=== PATIENT | female | born 1980 | race Caucasian/White ===

== ENCOUNTER → 2022-03-30 10:56 | Outpatient (CLI) | payer BC, SELFPAY ==
--- NOTE | ~2022-03-30 | XR_ITS ---
Right Hand Technique: PA, oblique, and lateral views were obtained. Clinical History: Pain Findings: No acute fracture or dislocation is seen. Osseous alignment is anatomic. Joint spaces are p reserved. Soft tissues are unremarkable. Impression: Unremarkable right hand. Reviewed, dictated and finalized at location M. ET LIGHT SERVICER SUPERVISOR Impression: Unremarkable right hand.
== END ==
PROVIDERS: PCP Family Medicine; Visit Provider Physician Assistant Medical
DX: M79.644 Pain in right finger(s) (principal)
CPT/HCPCS: 73130

== ENCOUNTER 2022-04-18 14:30 | Outpatient (RCR) | payer BC, SELFPAY ==
--- NOTE | 2022-02-23 12:19 | OTOPEVAL1 ---
Assessment and note entered by Denise Sylvester OTR/Tri Evaluation Information Assessment Status Evaluation Diagnosis Right Thumb Pain Subjective Information Patient presents to Outpatient OT for complaint of R pain over 1st dorsal compartment/base of thumb which began in October 2021. 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 Reported Pain Level Pain Score 0: Self Report Assessment OT Clinical Summary Velma is a 41 year old R hand dominant female, who presents to outpatient OT with complaints of pain /tenderness over R UE 1st dorsal compartment and base of thumb. Patient reports difficulties with work tasks such as gripping, pinching, grasping due to pain in thumb. Patient demonstrates a positive Finkelstien test and positive CMC joint grind test on R UE. Therapist fabricated a thumb spica orthosis for patient to facilitate healing of tendons at 1st dorsal compartment. Patient demonstrates understanding of wearing schedule, safety with orthosis, and is independent with doffing/donning orthosis. Patient would benefit from continued skilled OT for HEP instruction, UE exercise, manual therapy modalities to optimize functional use of R UE. Plan of Care Interventions Therapeutic Exercise,Manual Therapy,Therapeutic Activities,Hot Pack/Cold Pack,Check Out for Orthotic/Pr,Ultrasound,Paraffin OT Services Indicated Yes Treatment Frequency and 1x/week for 4 weeks Duration These treatments will address the objective and functional deficits as defined above. The patient will be advanced safely and appropriately in order for the patient to progress towards his/her prior level of function. Additional exercises will be introduced and as well as a comprehensive home exercise program upon discharge, if needed, ?to ensure carryover of functional gains achieved in the clinic. This treatment plan has been reviewed and agreement upon by the patient.
--- NOTE | 2022-03-22 15:08 | OTOPPROG ---
Assessment and note entered by Denise Sylvester OTR/Tri Evaluation Information Assessment Status Progress Diagnosis Right Thumb Pain Subjective Information Patient presents to Outpatient OT for complaint of R pain over 1st dorsal compartment/base of thumb which began in October 2021. Patient reports since coming to therapy and immobilizing thumb the pain in thumb and the amount of instances that increases pain in thumb has decreased. Patient reports is still experiencing pain in thumb at this time. Assessment OT Clinical Summary Velma is a 41 year old R hand dominant female, who presents to outpatient OT for re-evaluation with complaints of pain/tenderness over R UE 1st dorsal compartment and base of thumb. Patient reports less pain with work tasks including gripping, tearing tasks but occasionally these tasks will still cause increased discomfort. Patient demonstrates a positive Jean test which reports is less painful today and positive CMC joint grind test on R UE. Patient would benefit from continued skilled OT for continued immobilization with orthosis, HEP instruction, UE exercise, manual therapy, and modalities to optimize functional use of R UE. Plan of Care Interventions Therapeutic Exercise,Manual Therapy,Therapeutic Activities,Hot Pack/Cold Pack,Check Out for Orthotic/Pr,Ultrasound,Paraffin OT Services Indicated Yes Treatment Frequency and 1x/week for 4 weeks Duration These treatments will address the objective and functional deficits as defined above. The patient will be advanced safely and appropriately in order for the patient to progress towards his/her prior level of function. Additional exercises will be introduced and as well as a comprehensive home exercise program upon discharge, if needed, ?to ensure carryover of functional gains achieved in the clinic. This treatment plan has been reviewed and agreement upon by the patient.
--- NOTE | 2022-04-18 15:02 | OTOPDC ---
Assessment and note entered by Denise Sylvester OTR/Tri Evaluation Information Assessment Status Discharge Diagnosis Right Thumb Pain Subjective Information Patient presents to Outpatient OT for complaint of R pain over 1st dorsal compartment/base of thumb which began in October 2021. Patient reports since last treatment thumb has significantly improved and does not have pain with gripping, tearing tape , twisting tape. Patient reports has continued implementing HEP daily. Patient reports feels she is able to complete daily/work tasks with no pain and without the use of thumb spica splint. Reported Pain Level Pain Score 0: Self Report Assessment OT Clinical Summary Velma is a 41 year old R hand dominant female, who presents to outpatient OT for re-evaluation with complaints of pain/tenderness over R UE 1st dorsal compartment and base of thumb. Patient reports no longer experiencing pain with work tasks including gripping, tearing tasks. Patient demonstrates a negative Finkelstien test. Patient is pleased with progress and is to be discharged from skilled OT on this date with goals met and independence with HEP. Plan of Care OT Services Indicated No
== END 2022-04-18 15:37 | disposition home or self-care (01) ==
LOC: ANHGOSHOT 14:30
PROVIDERS: PCP Family Medicine; Visit Provider Family Medicine
DX: R29.898 Other symptoms and signs involving the musculoskeletal system (principal)
CPT/HCPCS: 97018; 97035; 97110; 97140; 97165; 97760; L3905

== ENCOUNTER → 2022-06-14 14:38 | Outpatient (CLI) | payer BC, SELFPAY ==
--- NOTE | ~2022-06-14 | MM_ITS ---
EXAMINATION: MM screening margarita BI w osito HISTORY: Screening TECHNIQUE: Craniocaudal and mediolateral oblique 3-D tomosynthesis images were obtained and synthetic 2-D images were generated. CAD analysis was submitted and interpreted. COMPARISON: No prior mammogram is available for comparison at this institution. BREAST PARENCHYMAL COMPOSITION: There are scattered areas of fibroglandular density. FINDINGS: There is no evidence of suspicious mass, calcification, or architectural distortion to sugg est malignancy in either breast. There has been no suspicious interval change. IMPRESSION: 1. No mammographic evidence of malignancy. 2. Recommend routine screening mammography in one year. BI-RADS Category 1: Negative Reviewed, dictated and finalized at location A.
== END ==
PROVIDERS: PCP Family Medicine; Visit Provider Family Medicine
DX: Z12.31 Encounter for screening mammogram for malignant neoplasm of breast (principal)
CPT/HCPCS: 77063; 77067

== ENCOUNTER 2023-01-29 08:22 | Emergency (ER) | payer OTHER, BC, SELFPAY ==
[2023-01-29] VITALS (17 sets, daily range): BP systolic 113–146; BP diastolic 80–94; PULSE 72–102; RESP 12–21; TEMP 36.6; O2SAT 97–100
--- NOTE | ~2023-01-29 | XR_ITS ---
EXAMINATION: XR chest 2V DATE: 01/29/2023 09:49 INDICATION: Chest pain TECHNIQUE: PA and lateral views of the chest are obtained. COMPARISON: None available FINDINGS: The lungs are free of acute opacities. No pleural effusion or pneumothorax. The cardiomedia stinal silhouette is normal. The visualized bones and soft tissues are unremarkable. IMPRESSION: 1. No acute cardiopulmonary abnormality. Reviewed, dictated and finalized at location B. TIVE RETOUCHER
--- NOTE | 2023-01-29 09:18 | ECG_ITS ---
Measurements Intervals [place] Rate: 72 P: 11 NC: 152 QRS: 55 QRSD: 85 T: 1 QT: 373 QTc: 409 Interpretive Statements SINUS RHYTHM BORDERLINE T WAVE ABNORMALITY- ANT/INF LEADS BORDERLINE ECG NO PREVIOUS ECG AVAILABLE FOR COMPARISON Electronically Signed On 01-29-2023 10:28:44 MANAGER LICENSING by Alvino Stevens D.O.
[2023-01-29 10:31] LABS: Basophils Absolute Auto 0.1 K/mm3 (0.0-0.1); Basophils Percent Auto 0.6 % (0.2-1.2); Eosinophils Percent Auto 0.3 % (0-4.4); Hematocrit 40.9 % (37.0-47.0); Hemoglobin 13.7 g/dL (12.0-15.0); Immature Granulocyte Absolute 0.01 K/mm3 (0.00-0.031); Immature Granulocyte Percent A 0.1 % (0-0.5); Lymphocytes Absolute Auto 1.97 K/mm3 (0.9-3.2); Lymphocytes Percent Auto 21.2 % (18.3-44.2); Mean Corpuscular HGB Conc 33.5 g/dl (32-36); Mean Corpuscular Hemoglobin 30.6 pg (26-34); Mean Corpuscular Volume 91.3 fl (80-100); Mean Platelet Volume 10.8 fl (7.4-10.4); Monocytes Absolute Auto 0.4 K/mm3 (0.1-0.6); Monocytes Percent Auto 4.1 % (2.6-8.5); Neutrophils Absolute Auto 6.8 K/mm3 (1.3-6.7); Neutrophils Percent Auto 73.7 % (45.5-73.1); Platelet Count Result 218 k/mm3 (150-375); Red Blood Count 4.48 M/mm3 (4.2-5.4); Red Cell Distribution Width 12.9 % (11.5-14.5); White Blood Count 9.3 K/mm3 (4.5-10.0)
[2023-01-29 10:43] LABS: Potassium 3.4 mmol/L (3.4-5.0)
[2023-01-29 10:47] LABS: Alanine Aminotransferase 20 U/L (6-35); Albumin Level 4.2 g/dL (3.5-5.1); Alkaline Phosphatase 101 U/L (38-126); Anion Gap 8 mmol/L (8-16); Aspartate Amino Transferase 25 U/L (14-36); Bilirubin,Total 0.6 mg/dL (0.2-1.3); Blood Urea Nitrogen 18 mg/dL (7-17); Carbon Dioxide 23 mmol/L (22-30); Chloride 100 mmol/L (98-107); Estimated CRCL calculation 78 ml/min; Estimated Glomerular Filt Rate > 60; Glucose 91 mg/dL (65-110); Sodium 131 mmol/L (137-145)
[2023-01-29 10:49] LABS: INR 0.9; Prothrombin Time 12.9 Seconds (11.1-14.7)
[2023-01-29 10:50] LABS: Partial Thromboplastin Time 27.4 SECONDS (22.3-36.8)
[2023-01-29 10:53] LABS: Troponin I < 0.012 ng/mL (0.000-0.034)
[2023-01-29 11:16] LABS: Creatine Kinase 92 U/L (30-135)
[2023-01-29 12:52] LABS: Troponin I < 0.012 ng/mL (0.000-0.034)
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
== END 2023-01-29 13:38 | disposition home or self-care (01) ==
PROVIDERS: Emergency Provider Emergency Medicine; PCP Family Medicine
DX: T75.4XXA Electrocution, initial encounter (principal); R07.89 Other chest pain; E78.2 Mixed hyperlipidemia; W86.8XXA Exposure to other electric current, initial encounter
CPT/HCPCS: 36415; 71046; 80053; 82550; 84484; 85025; 85610; 85730; 93005; 99284

== ENCOUNTER 2024-03-21 07:21 | Outpatient (CLI) | payer BC, SELFPAY ==
--- NOTE | ~2024-03-21 | CT_ITS ---
EXAMINATION: CT abdomen pelvis w con DATE: 03/21/2024 07:53 INDICATION: Intra-abdominal and pelvic swelling. TECHNIQUE: Computed tomography (CT) of the abdomen and pelvis was performed with 100 mL Omnipaque-350 intravenous contrast. Automated exposure control and iterative reconstruction technique were employe d. The dose-length product was 979.91 mGy-cm. COMPARISON: 08/23/2017 FINDINGS: Mild atelectasis at the right lung base. Heart size is normal. No pericardial or pleural effusion. Th ere are numerous scattered hepatic and bilateral renal cysts with secondary enlargement of the liver and kidneys consistent with autosomal dominant polycystic kidney disease. A large exophytic cyst norman uring up to 10.9 cm in maximal diameter arising from the lower pole of the left kidney demonstrates a n irregular region of peripheral imaging is subtle increased density, the largest component measuring 3.7 x 3.2 x 2.0 cm which could represent either small amount of hemorrhage, proteinaceous debris or potentially enhancing soft tissue. Some of the hepatic cysts exert mass effect upon the otherwise nor mal gallbladder. Spleen, pancreas and bilateral adrenal glands are normal. Postoperative change along the anterior abdominal wall with repair of the previously seen small fat-containing right sided para umbilical ventral hernia. Interval development of a new left paraumbilical ventral hernia which measu res 8.1 x 5.6 x 4.0 cm extending through a 2.9 x 2.2 cm os. Bladder is normal. Fibroid uterus. 1.7 cm peripherally enhancing corpus luteum cyst at the right ovary. Bowels including the appendix are norm al. Small amount of likely physiologic free fluid in the cul-de-sac. Bones are unremarkable. IMPRESSION: 1. Numerous hepatic and bilateral renal cysts consistent with dominant polycystic disease. There is a complex appearance to the 10.8 cm exophytic cyst at the lower pole the left kidney with peripheral r egion of subtly increased density within the absence of precontrast imaging remains indeterminate for enhancing soft tissue in the setting of a renal cell carcinoma. Would recommend further evaluation w ith pre and postcontrast MRI or CT. 2. Fibroid uterus. 3. New moderate-sized fat-containing left paraumbilical ventral hernia. Reviewed, dictated and finalized at location B. OLOGICAL TECHNOLOGIST IMPRESSION: 1. Numerous hepatic and bilateral renal cysts consistent with dominant polycyst ic disease. There is a complex appearance to the 10.8 cm exophytic cyst at the lower pole the left kidney with peripheral region of subtly increased density w ithin the absence of precontrast imaging remains indeterminate for enhancing so ft tissue in the setting of a renal cell carcinoma. Would recommend further shanique luation with pre and postcontrast MRI or CT. 2. Fibroid uterus. 3. New moderate-sized fat-containing left paraumbilical ventral hernia.
[2024-03-21 07:45] LABS: Estimated Glomerular Filt Rate > 60
== END 2024-03-21 07:22 | disposition home or self-care (01) ==
PROVIDERS: PCP Family Medicine; Visit Provider Physician Assistant Medical
DX: R19.00 Intra-abdominal and pelvic swelling, mass and lump, unspecified site (principal); Z87.19 Personal history of other diseases of the digestive system; Z98.890 Other specified postprocedural states; K43.9 Ventral hernia without obstruction or gangrene; D25.9 Leiomyoma of uterus, unspecified
CPT/HCPCS: 74177; Q9967

== ENCOUNTER 2024-05-02 08:02 | Outpatient (CLI) | payer BC, SELFPAY ==
--- NOTE | ~2024-05-02 | CT_ITS ---
EXAMINATION: CT abdomen pelvis wo/w con DATE: 05/02/2024 08:26 INDICATION: Cyst of kidney TECHNIQUE: Computed tomography (CT) of the abdomen and pelvis was performed without and with 100 mL O mnipaque-350 intravenous contrast. Automated exposure control and iterative reconstruction technique were employed. The dose-length product was 1970.59 mGy-cm. COMPARISON: 03/21/2024 FINDINGS: Discoid atelectasis in the right lower lobe. Heart size is normal. No pericardial or pleural effusion . Spleen, pancreas and bilateral adrenal glands are normal. There is numerous cysts throughout the liver and the enlarged bilateral kidneys consistent with polyc ystic kidney disease. The hepatic cysts along the tyson hepatis exert some mass effect upon the other garg normal gallbladder. The right kidney measures 23 cm in length and the left kidney measures 31 cm in length. The largest cyst which measures 10.9 cm arising from the lower pole of the left kidney de monstrates a peripheral region of soft tissue density on the precontrast imaging without evident sully tional enhancement on the postcontrast imaging consistent with a complex proteinaceous versus hemorrh agic cyst. No enhancing renal lesions identified. Bladder is normal. Bowels including the appendix are normal with no obstruction. There are few very s mall cystic lesions at the periphery of the endometrial complex of the retroverted uterus which could represent small fibroids or change of adenomyosis. Minimal amount of likely physiologic free fluid i n the cul-de-sac. Small bilateral ovarian follicles the largest on the right measuring 1.8 cm in maxi mal diameter. Moderate-sized fat-containing left para umbilical ventral hernia. Bones are unremarkabl e. IMPRESSION: 1. Numerous hepatic and bilateral renal cysts consistent with autosomal dominant polycystic kidney di sease. The previously noted high attenuation region at the periphery of the lower pole of the left ki dney demonstrates identical attenuation on the pre and postcontrast imaging with no evident enhanceme nt to suggest neoplasm. 2. Small uterine fibroids versus adenomyosis. 3. Moderate-sized fat-containing left para umbilical ventral hernia. Reviewed, dictated and finalized at location B. LER AND TEST PREPARER IMPRESSION: 1. Numerous hepatic and bilateral renal cysts consistent with autosomal dominan t polycystic kidney disease. The previously noted high attenuation region at th e periphery of the lower pole of the left kidney demonstrates identical attenua tion on the pre and postcontrast imaging with no evident enhancement to suggest neoplasm. 2. Small uterine fibroids versus adenomyosis. 3. Moderate-sized fat-containing left para umbilical ventral hernia.
--- OUTSIDE RECORDS SUMMARY | 2024-05-02 08:09 | XMS_ITS | Referral Summary ---
Author Organization [facility] [employer] Address [address] [place] [address] Care Team Providers Care Boulevard Glassware Replacer Name Role Phone Eliel Smalls MD Primary Care Provider [phone] Source Comments [facility] [employer],non-owned Affiliates and Associated Physician Practices is amultiple site organization consisting of ambulatory clinics and hospital sitesin [place], [place], [place] and [place]. This disclosure is being madepursuant to the Care Everywhere program and may not contain all information available regarding this patient. Last updated 17.[facility] [employer] Allergies No known active allergies Medications * Be aware that medications may not be up to date on this document. Alwaysverify current medications with the patient. Medication Sig Dispensed Refills Start Date End Date Status rosuvastatin (CRESTOR) 40 MG tablet Take 40 mg by mouth once daily Active lisinopril (PRINIVIL; ZESTRIL) 40 MG tablet Take 40 mg by mouth once daily Active HYDROCHLOROTHIAZIDE PO Ac tive sertraline (ZOLOFT) 50 MG tablet Take 50 mg by mouth once daily Active OtherIndications: CONTROl Reasons: CONTROl Active Social History Tobacco Use Types Packs/Day Years Used Date Smoking Tobacco: Never Smokeless Tobacco: Never Sex and Gender Information Value Date Recorded Sex Assigned at Not on file Gender Identity Not on file Sexual Orientation Not on file Last Filed Vital Signs Vital Sign Reading Time Taken Comments Blood Pressure 128/86 02/19/2018 5:35 PM MOBILE PARAMEDICAL EXAMINER Pulse 86 02/19/2018 5:35 PM MOBILE PARAMEDICAL EXAMINER Temperature 37.1 C (98.7 F) 02/19/2018 5:35 PM MOBILE PARAMEDICAL EXAMINER Respiratory Rate 16 02/19/2018 5:35 PM MOBILE PARAMEDICAL EXAMINER Oxygen Saturation 98% 02/19/2018 5:35 PM MOBILE PARAMEDICAL EXAMINER Inhaled Oxygen Concentration - - Weight 76.2 kg (168 lb) 02/19/2018 5:35 PM MOBILE PARAMEDICAL EXAMINER Height 157.5 cm (5' 2 ) 02/19/2018 5:35 PM MOBILE PARAMEDICAL EXAMINER Body Mass Index 30.73 02/19/2018 5:35 PM MOBILE PARAMEDICAL EXAMINER Plan of Treatment Not on file Care Teams Boulevard Glassware Replacer Relationship Specialty Start Date End Date Eliel Smalls MD [address] [place] [address] PCP - General Family Medicine 02/19/18
--- OUTSIDE RECORDS SUMMARY | 2024-05-02 08:09 | XMS_ITS | Patient Health Summary ---
Author Organization [facility] [employer] Address [address] [place] [address] Care Team Providers Care Director Of Retail Operations Name Role Phone Eliel Smalls MD Primary Care Provider [phone] Note from [facility],non-owned Affiliates and Associated Physician Practices is amultiple site organization consisting of ambulatory clinics and hospital sitesin [place], [place], [place] and [place]. This disclosure is being madepursuant to the Care Everywhere program and may not contain all information available regarding this patient. Last updated 17.[facility] [employer] Allergies No known active allergies Medications * Be aware that medications may not be up to date on this document. Alwaysverify current medications with the patient. * rosuvastatin (CRESTOR) 40 MG tablet Take 40 mg by mouth once daily * lisinopril (PRINIVIL; ZESTRIL) 40 MG tablet Take 40 mg by mouth once daily * HYDROCHLOROTHIAZIDE PO * sertraline (ZOLOFT) 50 MG tablet Take 50 mg by mouth once daily * Other Reasons: CONTROl Social History Tobacco Use Types Packs/Day Years Used Date Smoking Tobacco: Never Smokeless Tobacco: Never Sex and Gender Information Value Date Recorded Sex Assigned at Not on file Gender Identity Not on file Sexual Orientation Not on file Last Filed Vital Signs Vital Sign Reading Time Taken Comments Blood Pressure 128/86 02/19/2018 5:35 PM LATHE MACHINE OPERATOR Pulse 86 02/19/2018 5:35 PM LATHE MACHINE OPERATOR Temperature 37.1 C (98.7 F) 02/19/2018 5:35 PM LATHE MACHINE OPERATOR Respiratory Rate 16 02/19/2018 5:35 PM LATHE MACHINE OPERATOR Oxygen Saturation 98% 02/19/2018 5:35 PM LATHE MACHINE OPERATOR Inhaled Oxygen Concentration - - Weight 76.2 kg (168 lb) 02/19/2018 5:35 PM LATHE MACHINE OPERATOR Height 157.5 cm (5' 2 ) 02/19/2018 5:35 PM LATHE MACHINE OPERATOR Body Mass Index 30.73 02/19/2018 5:35 PM LATHE MACHINE OPERATOR Procedures * STREP A SCREEN - POINT OF CARE (AMB) STL(Performed 02/19/2018) Performed for Strep throat * DERMATOPATHOLOGY(Performed 06/29/2014) Results * (ABNORMAL) STREP A SCREEN - POINT OF CARE (AMB) STL (02/19/2018 5:47 PM LATHE MACHINE OPERATOR) Strep A Rapid POCT Positive(A) Negative Strep A Internal Control Present Lot # [id number] Expiration Date 07 18 2019 Throat ENTIRE THROAT (SURFACE REGION OF NECK) / Unknown 02/19/2018 5:47 PM LATHE MACHINE OPERATOR Darryl Mckeon APRN-[facility] - POINT OF CA RE ORDERABLES * PATHOLOGY TISSUE FOR DERMATOLOGY (06/29/2014 12:00 AM CDT) Result CASE: [id number] PATIENT: BARB JENNINGS PATHOLOGIC DIAGNOSIS: Right trunk: COMPOUND MELANOCYTIC NEVUS NOT PRESENT AT SAMPLED MARGIN CLINICAL DATA: Changing, enlarging. Check margins. GROSS DESCRIPTION: Received is one formalin filled container labeled with the patients name and designated right trunk. The specimen consists of a [id number] piece of skin. The margin is inked green. Jar 0. MICROSCOPIC DESCRIPTION: There are nests of melanocytes at the dermal-epiderm al junction and within the dermis. This lesion is not present at the sampled margin of the specimen. Electronically signed out by Irene Vidales M.D., PhD. 07/01/2014 10:56:29AM [facility] Comment: Performed at: Dermatopathology Laboratory [facility] - Department of Dermatology [address] [place] [address], 5th [place] [address] Phone number: [phone] FAX: [phone] 06/29/2014 06/30/2014 Eliel Smalls MD LAB - PATHOLOGY/CYTO LOGY ORDERABLES [facility] [address] [place] [address]. 5th Floor Lab B [address] [phone] Care Teams Director Of Retail Operations Relationship Specialty Start Date End Date Eliel Smalls MD [address] [place] [address] PCP - General Family Medicine 02/19/18
--- OUTSIDE RECORDS SUMMARY | 2024-05-02 08:09 | XMS_ITS | Clinical Summary ---
Author Organization [facility] Address [address] [place] [phone] Phone Care Team Providers Care Supervisor Sign Shop Name Role Phone Unavailable Primary Care Provider Unavailabl e Medications Medication Sig Dispensed Refills Start Date End Date Status lisinopril (PRINIVIL,ZESTRIL) 40 MG tablet 1 tab/cap qday 01/31/2015 Active hydroCHLOROthiazide (HYDRODIURIL) 12.5 MG tablet 1 tab/cap qday 01/31/2015 Active levonorgestrel-ethinyl estradiol (LUTERA) 0.1-20 MG-MCG per tablet 1 tab/cap qday 01/31/2015 Act angela atorvastatin (LIPITOR) 40 MG tablet 1 tab/cap qday 01/31/2015 Active Active Problems Problem Noted Date Diagnosed Date Adult polycystic kidney 02/01/2015 Essential (primary) hypertension 01/31/2015 Other hyperlipidemia 01/31/2015 Overview (06/08/2018): Converted unresolved ICD9, potential mismatch. Family History Medical History Relation Comments Malignant neoplastic disease Father Heart disease Mother Kidney disease Mother Kidney stone Mother Malignant neoplastic disease Sibling Relation Status Comments Father Mother Sibling Social History Tobacco Use Types Packs/Day Years Used Date Smoking Tobacco: Never Assessed Sex and Gender Information Value Date Recorded Sex Assigned at Not on file Gender Identity Not on file Sexual Orientation Not on file Last Filed Vital Signs Vital Sign Reading Time Taken Comments Blood Pressure 122/70 07/17/2016 12:01 AM CDT Sitting, Right Pulse - - Temperature 35.6 C (96.1 F) 07/17/2016 12:01 AM CDT Respiratory Rate - - Oxygen Saturation - - Inhaled Oxygen Concentration - - Weight 79.4 kg (175 lb) 07/17/2016 12:0 1 AM CDT Height 157.5 cm (5' 2 ) 07/17/2016 12:0 1 AM CDT Body Mass Index 32.01 07/17/2016 12:01 AM CDT Plan of Treatment Not on file
--- OUTSIDE RECORDS SUMMARY | 2024-05-02 08:10 | XMS_ITS | Clinical Summary ---
Author Organization [facility] [employer] Address [address] [place] [address] Care Team Providers Care Metal Drill Operator Name Role Phone Eliel Smalls MD Primary Care Provider [phone] Source Comments [facility] [employer],non-owned Affiliates and Associated Physician Practices is amultiple site organization consisting of ambulatory clinics and hospital sitesin [place], [place], [place] and [place]. This disclosure is being madepursuant to the Care Everywhere program and may not contain all information available regarding this patient. Last updated 17.[facility] [employer] Allergies No known active allergies Medications * [...] daily Active OtherIndications: CONTROl Reasons: CONTROl Active Family History Medical History Relation Name Comments Hypertension Mother Relation Name Status Comments Mother Social History Tobacco Use Types Packs/Day Years Used Date Smoking Tobacco: Never Smokeless Tobacco: Never Sex and Gender Information Value Date Recorded Sex Assigned at Not on file Gender Identity Not on file Sexual Orientation Not on file Last Filed Vital Signs Vital Sign Reading Time Taken Comments Blood Pressure 128/86 02/19/2018 5:35 PM MAJOR GENERAL Pulse 86 02/19/2018 5:35 PM MAJOR GENERAL Temperature 37.1 C (98.7 F) 02/19/2018 5:35 PM MAJOR GENERAL Respiratory Rate 16 02/19/2018 5:35 PM MAJOR GENERAL Oxygen Saturation 98% 02/19/2018 5:35 PM MAJOR GENERAL Inhaled Oxygen Concentration - - Weight 76.2 kg (168 lb) 02/19/2018 5:35 PM MAJOR GENERAL Height 157.5 cm (5' 2 ) 02/19/2018 5:35 PM MAJOR GENERAL Body Mass Index 30.73 02/19/2018 5:35 PM MAJOR GENERAL Plan of Treatment Health Maintenance Due Date Last Done Comments MAMMOGRAM 1980 PAP SMEAR 1980 HIV SCREENING 06/28/1995 HEPATITIS C SCREENING 06/23/1998 DTAP/TDAP/TD VACCINES (1 - Tdap) 06/28/1999 HEPATITIS B VACCINE (1 of 3 - 19+ 3-dose series) 06/28/1999 COVID-19 VACCINE ( - 2023-2 5 season) 2023 INFLUENZA VACCINE (#1) 2023 DEPRESSION SCREENING 03/26/2024 ZOSTER VACCINE (1 of 2) 2030 HIB VACCINE Aged Out No longer eligi ble based on patient's age to complete this topic HPV VACCINE Aged Out No longer eligi ble based on patient's age to complete this topic MENINGOCOCCAL (Group B) VACCINE Aged Out No longer eligible based on patient's age to complete this topic MENINGOCOCCAL VACCINE Aged Out No adam justine eligible based on patient's age to complete this topic PNEUMOCOCCAL VACCINE Aged Out No long er eligible based on patient's age to complete this topic Care Teams Metal Drill Operator Relationship Specialty Start Date End Date Eliel Smalls MD [address] [place] [address] PCP - General Family Medicine 02/19/18
[2024-05-02 08:21] LABS: Estimated Glomerular Filt Rate > 60
== END 2024-05-02 08:03 | disposition home or self-care (01) ==
PROVIDERS: PCP Family Medicine; Visit Provider Physician Assistant Medical
DX: N28.1 Cyst of kidney, acquired (principal)
CPT/HCPCS: 74178; Q9967

== ENCOUNTER 2024-06-30 12:53 | Outpatient (CLI) | payer BC, SELFPAY ==
--- NOTE | ~2024-06-30 | XR_ITS ---
XR chest 2V Ordering provider: Dominic Blank MD History: 44 years Female with . K43.2 - Incisional hernia without obstruction or gangrene . Comparison: January 29, 2023 FINDINGS: MEDIASTINUM: The cardiac silhouette is not enlarged. LUNGS: No infiltrates, effusions or pneumothorax. OTHER: No free air under the diaphragm. IMPRESSION: No acute cardiopulmonary pathology. Reviewed, dictated and finalized at location A.
--- NOTE | 2024-06-30 13:09 | ECG_ITS ---
Test Date: 2024-06-30 13:30:14 Measurements Intervals Friendly Rate: 77 P: 14 IN: 158 QRS: 100 QRSD: 88 T: 9 QT: 360 QTc: 409 Interpretive Statements SINUS RHYTHM RIGHT AXIS DEVIATION POSSIBLE ANTERIOR MYOCARDIAL INFARCTION BORDERLINE T WAVE ABNORMALITY- ANT/INF LEADS BASELINE ARTIFACT- I, II, III, AVR, AVL, AVF, V3-V6 ABNORMAL ECG No previous ECG available for comparison Electronically Signed On 06-30-2024 13:58:58 CDT by Alvino Stevens D.O.
[2024-06-30 13:46] LABS: Basophils Absolute Auto 0.1 K/mm3 (0.0-0.1); Basophils Percent Auto 0.6 % (0.2-1.2); Eosinophils Absolute Auto 0.1 K/mm3 (0-0.3); Eosinophils Percent Auto 0.9 % (0-4.4); Hematocrit 40.1 % (37.0-47.0); Hemoglobin 13.5 g/dL (12.0-15.0); Immature Granulocyte Absolute 0.02 K/mm3 (0.00-0.031); Immature Granulocyte Percent A 0.2 % (0-0.5); Lymphocytes Absolute Auto 1.77 K/mm3 (0.9-3.2); Lymphocytes Percent Auto 19.1 % (18.3-44.2); Mean Corpuscular HGB Conc 33.7 g/dl (32-36); Mean Corpuscular Hemoglobin 30.4 pg (26-34); Mean Corpuscular Volume 90.3 fl (80-100); Mean Platelet Volume 10.6 fl (7.4-10.4); Monocytes Absolute Auto 0.4 K/mm3 (0.1-0.6); Monocytes Percent Auto 3.9 % (2.6-8.5); Neutrophils Percent Auto 75.3 % (45.5-73.1); Platelet Count Result 217 k/mm3 (150-375); Red Blood Count 4.44 M/mm3 (4.2-5.4); Red Cell Distribution Width 13.4 % (11.5-14.5); White Blood Count 9.3 K/mm3 (4.5-10.0)
[2024-06-30 14:03] LABS: Alanine Aminotransferase 17 U/L (6-35); Albumin Level 4.4 g/dL (3.5-5.1); Alkaline Phosphatase 96 U/L (38-126); Anion Gap 12 mmol/L (4-12); Aspartate Amino Transferase 21 U/L (14-36); Bilirubin,Total 0.6 mg/dL (0.2-1.3); Blood Urea Nitrogen 17 mg/dL (7-17); Calcium 9.1 mg/dL (8.4-10.2); Carbon Dioxide 23 mmol/L (22-30); Chloride 100 mmol/L (98-107); Estimated Glomerular Filt Rate > 60; Glucose 90 mg/dL (65-110); Potassium 3.8 mmol/L (3.4-5.0); Sodium 135 mmol/L (137-145)
[2024-06-30 14:04] LABS: INR 0.9; Prothrombin Time 13.1 Seconds (11.1-14.7)
[2024-06-30 14:05] LABS: Partial Thromboplastin Time 26.9 Seconds (22.3-36.8)
--- OUTSIDE RECORDS SUMMARY | 2024-06-30 14:51 | XMS_ITS | Clinical Summary ---
Author Organization [facility] Address [address] [place] [address] Care Team Providers Care Locator Specialist Name Role Phone Eliel Smalls MD Primary Care Provider Source Comments [facility],non-owned Affiliates and Associated Physician Practices is amultiple site organization consisting of ambulatory clinics and hospital sitesin [place], [place], [place] and [place]. This disclosure is being madepursuant to the Care Everywhere program and may not contain all information available regarding this patient. Last updated 17.[facility] Allergies No known active allergies Medications * [...] Comments Blood Pressure 128/86 02/19/2018 5:35 PM SERVICES DELIVERY DRIVER Pulse 86 02/19/2018 5:35 PM SERVICES DELIVERY DRIVER Temperature 37.1 C (98.7 F) 02/19/2018 5:35 PM SERVICES DELIVERY DRIVER Respiratory Rate 16 02/19/2018 5:35 PM SERVICES DELIVERY DRIVER Oxygen Saturation 98% 02/19/2018 5:35 PM SERVICES DELIVERY DRIVER Inhaled Oxygen Concentration - - Weight 76.2 kg (168 lb) 02/19/2018 5:35 PM SERVICES DELIVERY DRIVER Height 157.5 cm (5' 2 ) 02/19/2018 5:35 PM SERVICES DELIVERY DRIVER Body Mass Index 30.73 02/19/2018 5:35 PM SERVICES DELIVERY DRIVER Plan of Treatment Health Maintenance Due Date Last Done Comments MAMMOGRAM 1980 PAP SMEAR 1980 HIV SCREENING 06/28/1995 HEPATITIS C SCREENING 06/23/1998 DTAP/TDAP/TD VACCINES (1 - Tdap) 06/28/1999 HEPATITIS B VACCINE (1 of 3 - 19+ 3-dose series) 06/28/1999 COVID-19 VACCINE (1 - 2023-2 5 season) 2023 DEPRESSION SCREENING 03/26/2024 INFLUENZA VACCINE (Season Ended) 2024 ZOSTER VACCINE (1 of 2) 2030 HIB VACCINE Aged Out No longer eligi ble based on patient's age to complete this topic HPV VACCINE Aged Out No longer eligi ble based on patient's age to complete this topic MENINGOCOCCAL (Group B) VACC INE SHARED DECISION-MAKING Aged Out No longer eligibl e based on patient's age to complete this topic MENINGOCOCCAL GROUPS A/C/Y/W VACCINE Aged Out No longer eligible b ased on patient's age to complete this topic PNEUMOCOCCAL VACCINE Aged Out No long er eligible based on patient's age to complete this topic Care Teams Locator Specialist Relationship Specialty Start Date End Date Eliel Smalls MD [address] [place] [address] PCP - General Family Medicine 02/19/18
--- OUTSIDE RECORDS SUMMARY | 2024-06-30 14:51 | XMS_ITS | Clinical Summary ---
Author Organization [facility] [employer] Address [address] [place] [phone] Phone Care Team Providers Care Assorter Laundry Name Role Phone Unavailable Primary Care Provider [...]
== END 2024-06-30 12:54 | disposition home or self-care (01) ==
LOC: ANHSURGERY 13:03
PROVIDERS: Anesthesiology; PCP Family Medicine; Visit Provider Surgery
DX: K43.2 Incisional hernia without obstruction or gangrene (principal); Q61.3 Polycystic kidney, unspecified
CPT/HCPCS: 36415; 71046; 80053; 85025; 85610; 85730; 86850; 86900; 86901; 93005

== ENCOUNTER 2024-07-09 00:23 | Day surgery (SDC) | payer BC, SELFPAY ==
[2024-06-27 12:09] VITALS: BMI 35.4
--- NOTE | 2024-06-27 12:10 | PC.NURSE ---
Report to the Outpatient Waiting Room, entrance under the green pavilion located off [facility], at time _0900_ on date _[id number]_. Planned Procedure Time: _1100_.? Time changes happen often and if your time is changed the preop area will call you the afternoon before. - You and your visitor will be asked to self-screen and do not enter if you have any COVID symptoms. Please call surgeon if you need to reschedule. - A mask is optional within the hospital at this time. Patients may have clear liquids (water, carbonated beverages, clear teas, apple juice) until 3 hours prior to surgery with a maximum of 20 ounces. - No food from midnight until time of surgery and no smoking, or chewing tobacco (or any form of nicotine). No chewing gum, candy or mints. Take only the following medications with a SIP of water on the morning of surgery: __None DO NOT STOP ANY OF YOUR OTHER PRESCRIPTION MEDICATIONS PRIOR TO SURGERY EXCEPT THE FOLLOWING Hold all vitamins and supplements for 3 days per anesthesiologist. Medications to discontinue per physician Date to take last dose Please no make-up, nail maori, hairspray, perfume, deodorant, or body powder the day of surgery.? No jewelry (including any body piercings) or valuables the day of surgery, leave them at home.? Please take a shower or bath the night before, or the morning of, surgery with an antibacterial soap.? Wear comfortable, loose fitting clothing.? - Jewelry must be removed prior to entering the operating room.? Rings and piercings that are not removed may be cut off. - The hospital will not accept responsibility for valuables.? - Please leave all valuables, including medications, at home the day of surgery. If you are going home after surgery, a licensed speedboat driver must drive you home.? - NO public transportation without another adult if you receive anesthesia. - We recommend that an adult stay with you for 24 hours following discharge. - We also recommend that you do not drive, make important decision, drink alcoholic beverages, or take any drugs that were not prescribed by your health care provider for at least 24 hours after your discharge time. Follow any additional instructions given to you from your surgeon. Telephone instructions given to __Erica___and asked if any additional questions and then verbalized understanding. Patient advised to call surgeon office or pre surgery nurse liaison [phone] if any additional questions.
--- NOTE | 2024-07-08 19:39 | P.SS_ITS ---
Same Day Admit/Disch: HPI History of Present Illness Chief complaint: recurrent incisional hernia(5cm defect) Narrative: Velma Fischer is a 44 year old female who has had hernias in the upper area of her umbilicus repaired on 2 different occasions previously. She noticed a recurrent bulge to the left of her umbilicus about 2 years ago. The bulge has gotten bigger and is sometimes painful. She was seen in the office and found to have a recurrent incisional hernia. The defect was difficult to palpate but review of her CT scan shows this to be a 5 cm defect. She is taken to surgery at this time for robotic laparoscopic repair of recurrent incisional hernia with mesh. [facility] Past Medical History Medical History Kidney disease Hypertension Body mass index (BMI) of 31.0 to 31.9 in adult Thumb weakness Mixed hyperlipidemia Surgical History Surgical History History of ventral hernia repair [address] her[address] repair. Dr. Blank Hx of umbilical hernia repair 2017 Dr. Lopez Family History Family History Grandparent Hypertension Carcinoma of colon Diabetes mellitus Mother Hypertension Family history of polycystic kidney disease Family history of elevated blood lipids Father Family history of primary malignant neoplasm of liver Family history of malignant neoplasm Sibling Family history of malignant neoplasm of thyroid Family history of elevated blood lipids Other Family history of cardiovascular disease Family history of kidney disease Social History Social History Smoking status: Never smoker Second hand tobacco smoke exposure: No Alcohol intake: current Substance use: current Substance use type: marijuana Do You Feel Safe in your Home?: Yes Lack of Transportation: No Lack of Food: Never True Current Housing: I Have Housing Concerned About Future Housing: No Difficulty Paying Gas/Electric Bills: No Difficulty Paying for Meds: No Currently Unemployed: No Education: High School Diploma/GED Difficulty w/ Childcare or Family Care: No Living arrangements: with family Spiritual care concerns: No Same Day Admit/Disch: Med Pre-admit Medications Home Medications ?Medication ?Instructions ?Recorded ?Confirmed ?Type hydrochlorothiazide 25 mg tablet 25 mg PO DAILY #90 tabs 02/27/24 07/09/24 Rx lisinopril 40 mg tablet 40 mg PO DAILY #90 tabs 02/27/24 07/09/24 Rx rosuvastatin 40 mg tablet See Rx Instructions .Route 02/27/24 07/09/24 Rx .COMPLEX #90 tabs sertraline 100 mg tablet (Zoloft) 100 mg PO DAILY #90 tabs 06/01/24 07/09/24 Rx alprazolam 0.25 mg tablet 0.25 mg PO DAILY PRN anxiety #20 07/01/24 07/09/24 Rx tabs ketorolac 10 mg tablet 10 mg PO Q6H 4 days #16 tabs 07/09/24 Rx oxycodone-acetaminophen 5 mg-325 1 - 2 tablet PO Q6H PRN pain #30 07/09/24 Rx mg tablet (Percocet) tabs Review of Systems Review of Systems All systems reviewed & are unremarkable except as noted in HPI and below (HPI) Gastrointestinal Comments: Patient known to have polycystic liver disease Genitourinary Comments: Patient known to have polycystic kidney disease Exam Const: General: comfortable, no acute distress, alert and awake HENMT: Head: normocephalic and atraumatic Mouth: Yes Normal oral and palatal mucosa present Eyes: Conjunctivae: conjunctivae normal Pupils: Equal, round and reactive pupils present EOM: EOMs intact bilaterally Neck: Neck: normal visual inspection, no lymphadenopathy and nontender Resp: Effort & Inspection: normal respiratory effort Auscultation: clear to auscultation bilaterally Cardio: Rate: regular rate Rhythm: regular rhythm Heart sounds: no gallops, no murmurs and no rubs GI: Inspection: non-distended and visible herniation GI Palp: Yes Soft to palpation, No Tenderness to palpation present (GI), No Hepatomegaly present, No Splenomegaly present, Yes Hernia present incisional 3-10 cm (Hernia bulge just left of the umbilicus) and Yes Other GI palpation findings present (Liver enlarged, 16 cm below right costal margin) Skin: Lesions: no lesions Rashes: no rashes Neuro: General: no focal motor deficits and CN's II-XI intact bilaterally Cranial nerves: Yes Equal, round and reactive pupils present, Yes Bilaterally intact EOM present, Yes facial symmetry and Yes Midline tongue present Speech: normal speech Motor exam (neuro): 5/5 motor strength present throughout and Motor abnormalities not present Extrem: General: no clubbing, cyanosis or edema and edema Psych: Affect: normal affect Thought process: Normal thought process pres ent Insight: Good insight present (Psych) DS: Summary Time Spent with Patient Time attestation: Total time spent providing and/or coordinating discharge services: DS: Admitting Diagnosis Discharge Date 07/09/2024 Admitting Diagnosis * Recurrent incisional hernia-defect [address] but and not be palpated well on exam. Patient has had 2 previous repairs. She is taken to surgery at this time for robotic laparoscopic repair with mesh. The procedure, risks, benefits, alternatives have been discussed. All questions were answered. She understands and wishes to go ahead. * Polycystic liver disease with enlarged liver * Polycystic kidney disease * Essential hypertension DS: Discharge Diagnosis Discharge Diagnosis (1) Recurrent incisional hernia: Code(s): K43.2 - Incisional hernia without obstruction or gangrene Status: Acute Assessment and Plan: Robotic laparoscopic repair with mesh performed to repair re-recurrent incisional hernia with [address] Blank (2) Polycystic liver disease: Code(s): Q44.6 - Cystic disease of liver Status: Chronic (3) Polycystic kidney disease: Code(s): Q61.3 - Polycystic kidney, unspecified Status: Chronic (4) Essential (primary) hypertension: Code(s): I10 - Essential (primary) hypertension Status: Chronic Discharge Plan Discharge Patient Disposition: Home Discharge Instructions: 1. May shower the day after surgery over incisions. 2. Call office for: -Wound increasingly painful or bleeding -Vomiting -Fever of greater than 101 degrees 3. Expect some blood on dressing and old blood on skin. 4. If no bowel movement for three days, take 1 oz. (30 ml) Milk of Magnesia, if no results, take Fleets enema. 5. No heavy lifting > 15-20 pounds for 2 weeks. 6. No driving for 3 days or while taking narcotic pain medications. 7. Up walking 10-30 minutes three times per day. 8. Resume previous home medications. 9. Follow-up 10-14 days in office for wound check or as previously scheduled. 10. Oral pain medications prescription to be sent home with patient. 11. NUTRITION: Start out by drinking fluids and increase your diet as tolerated. If you experience nausea, try dry toast, crackers, and 7-UP. If nausea or vomiting persists, contact your surgeon?s office. Patient Language: Yoruba Stand Alone Forms: General Discharge Instructions Follow-up/Referrals: Dominic Blank MD [Physician] - 2 Weeks Discharge Medications: New ketorolac 10 mg tablet 10 mg PO Q6H 4 Days Qty: 16 0RF oxycodone-acetaminophen [Percocet] 5-325 mg tablet 1 - 2 tablet PO Q6H PRN (Reason: pain) Qty: 30 0RF Continued hydrochlorothiazide 25 mg tablet 25 mg PO DAILY Qty: 90 3RF Patient Comments: Takes in evening lisinopril 40 mg tablet 40 mg PO DAILY Qty: 90 3RF Patient Comments: Takes in evenin rosuvastatin 40 mg tablet See Rx Instructions .ROUTE .COMPLEX Qty: 90 3RF Dose Instruction: TAKE 1 TABLET BY MOUTH EVERY DAY Patient Comments: Takes in evening Rx Instructions: TAKE 1 TABLET BY MOUTH EVERY DAY sertraline [Zoloft] 100 mg tablet 100 mg PO DAILY Qty: 90 1RF Patient Comments: Takes in evening alprazolam 0.25 mg tablet 0.25 mg PO DAILY PRN (Reason: anxiety) Qty: 20 0RF
[2024-07-09] VITALS (11 sets, daily range): BP systolic 113–140; BP diastolic 53–83; PULSE 79–103; RESP 8–19; TEMP 36.1–36.3; O2SAT 96–100
--- OUTSIDE RECORDS SUMMARY | 2024-07-09 00:26 | XMS_ITS | Clinical Summary ---
Author Organization [facility] [employer] Address [address] [place] [address] Care Team Providers Care Clinical Specialty Rep Name Role Phone Eliel Smalls MD Primary Care Provider [phone] Source Comments [facility] [employer],non-owned Affiliates and Associated Physician Practices is amultiple site organization consisting of ambulatory clinics and hospital sitesin [place], [place], [place] and [place]. This disclosure is being madepursuant to the Care Everywhere program and may not contain all information available regarding this patient. Last updated 17.[facility] [employer] Allergies No known active allergies Medications * Be aware that medications may not be up to date on this document. Alwaysverify current medications with the patient. rosuvastatin (CRESTOR) 40 MG tablet Take 40 mg by mouth once daily Active lisinopril (PRINIVIL; ZESTRIL) 40 MG tablet Take 40 mg by mouth once daily Active HYDROCHLOROTHIA ZIDE PO Active sertraline (ZOLOFT) 50 MG tablet Take 50 mg by mouth once daily Active OtherIndication s: CONTROl Reasons: CONTROl Active Family History Medical History Relation Name Comments Hypertension Mother Relation Name Status Comments Mother Social History Tobacco Use Types Packs/Day Years Used Date Smoking Tobacco: Never Smokeless Tobacco: Never Comments No Sex and Gender Information Value Date Recorded Sex Assigned at Not on file Legal Sex Female 6:19 PM MOLDING LINE OPERATOR Gender Identity Not on file Sexual Orientation Not on file Last Filed Vital Signs Vital Sign Reading Time Taken Comments Blood Pressure 128/86 02/19/2018 5:35 PM MOLDING LINE OPERATOR Pulse 86 02/19/2018 5:35 PM MOLDING LINE OPERATOR Temperature 37.1 C (98.7 F) 02/19/2018 5:35 PM MOLDING LINE OPERATOR Respiratory Rate 16 02/19/2018 5:35 PM MOLDING LINE OPERATOR Oxygen Saturation 98% 02/19/2018 5:35 PM MOLDING LINE OPERATOR Inhaled Oxygen Concentration - - Weight 76.2 kg (168 lb) 02/19/2018 5:35 PM MOLDING LINE OPERATOR Height 157.5 cm (5' 2 ) 02/19/2018 5:35 PM MOLDING LINE OPERATOR Body Mass Index 30.73 02/19/2018 5:35 PM MOLDING LINE OPERATOR Plan of Treatment Health Maintenance Due Date Last Done Comments MAMMOGRAM 1980 HIV SCREENING 06/28/1995 HEPATITIS C SCREENING 06/23/1998 DTAP/TDAP/TD VACCINES (1 - Tdap) 06/28/1999 HEPATITIS B VACCINE (1 of 3 - 19+ 3-dose series) 06/28/1999 COVID-19 VACCINE ( - 2023-2 5 season) 2023 DEPRESSION SCREENING [...] on patient's age to complete this topic Insurance [facility] Address: [facility] [address] [place] [address] Care Teams Clinical Specialty Rep Relationship Specialty Start Date End Date Eliel Smalls MD [address] [place] [address] PCP - General Family Medicine 02/19/18
--- OUTSIDE RECORDS SUMMARY | 2024-07-09 00:26 | XMS_ITS | Clinical Summary ---
Author Organization [facility] Address [address] [place] [phone] Phone Care Team Providers Care Approver Name Role Phone Unavailable Primary Care Provider Unavailabl e Medications lisinopril (PRINIVIL,ZESTRI L) 40 MG tablet 1 tab/cap qday 01/31/2015 Active hydroCHLOROthiaz minesh (HYDRODIURIL) 12.5 MG tablet 1 tab/cap qday 01/31/2015 Active levonorgestrel-e thinyl estradiol (LUTERA) 0.1-20 MG-MCG per tablet 1 tab/cap qday 01/31/2015 Active atorvastatin (LIPITOR) 40 MG tablet 1 tab/cap [...] Years Used Date Smoking Tobacco: Never Assessed Comments Unknown Sex and Gender Information Value Date Recorded Sex Assigned at Not on file Legal Sex Female 7:47 AM MST Gender Identity Not on file Sexual Orientation [...]
--- NOTE | 2024-07-09 08:00 | WPDHPUPDATE1 ---
History and Physical Update Update Date/Time: 07/09/24 08:00 History and Physical has been reviewed, including an updated exam of the patient. There are NO changes in the patient's condition. Risks, benefits, and alternatives have been discussed and questions answered. Patient agrees to proceed with procedure.
[2024-07-09 08:59] LABS: BEDSIDEPREGUCG Negative (Negative)
[2024-07-09] MEDS: LACTATED RINGERS 1,000 ML 30 ML IV CONT ×3 (09:20→16:23)
[2024-07-09] MEDS: ACETAMINOPHEN 500 MG TABLET 1000 MG PO (09:25)
[2024-07-09] MEDS: KETOROLAC 15 MG/ML VIAL (*BKC) IV PUSH (09:25)
--- NOTE | 2024-07-09 10:11 | P.PNAN_ITS ---
Anes - Initial Pre Proc Eval Procedure: Operation Date: 07/09/24 11:00 Proposed Procedures p Robotic Repair Recurrent Incisional Hernia with 5cm Defect with Mesh - Dominic Blank MD Date/Time: 07/09/24 10:11 Surgeon: Dominic Blank MD Pre Op Diagnosis: recurrent incisional hernia(5cm defect) Patient Data Age: 44 Gender: F Height: 1.56 m Weight: 84.6 kg Last Vital Signs Temp 36.3 C L 07/09/24 08:50 Pulse 88 07/09/24 08:50 Resp 18 07/09/24 08:50 BP 124/78 07/09/24 08:50 Pulse Ox 97 07/09/24 08:50 O2 Del Method Room Air 07/09/24 08:50 Allergies Allergy/AdvReac Type Severity Reaction Status Date / Time No Known Allergies Allergy Verified 07/09/24 09:32 Home Medications ?Medication ?Instructions ?Recorded ?Confirmed ?Type hydrochlorothiazide 25 mg tablet 25 mg PO DAILY #90 tabs 02/27/24 07/09/24 Rx lisinopril 40 mg tablet 40 mg PO DAILY #90 tabs 02/27/24 07/09/24 Rx rosuvastatin 40 mg tablet See Rx Instructions .Route 02/27/24 07/09/24 Rx .COMPLEX #90 tabs sertraline 100 mg tablet (Zoloft) 100 mg PO DAILY #90 tabs 06/01/24 07/09/24 Rx alprazolam 0.25 mg tablet 0.25 mg PO DAILY PRN anxiety #20 07/01/24 07/09/24 Rx tabs Laboratory Tests 07/09/24 08:57 POC Urine HCG, Qual Negative (Negative) Patient hx anesthesia problems: none Family hx anesthesia problems: none Results Review: All pre-operative results and documents have been reviewed as part of the pre- operative evaluation. [facility] Past Medical History Medical History Kidney disease Hypertension Body mass index (BMI) of 31.0 to 31.9 in adult Thumb weakness Mixed hyperlipidemia Surgical History Surgical History History of ventral hernia repair [address] recurrent ventral hernia repair. Dr. Blank Hx of umbilical hernia repair 2017 Dr. Lopez Family History Family History Grandparent Hypertension Carcinoma of colon Diabetes mellitus Mother Hypertension Family history of polycystic kidney disease Family history of elevated blood lipids Father Family history of primary malignant neoplasm of liver Family history of malignant neoplasm Sibling Family history of malignant neoplasm of thyroid Family history of elevated blood lipids Other Family history of cardiovascular disease Family history of kidney disease Social History Social History Smoking status: Never smoker Second hand tobacco smoke exposure: No Alcohol intake: current Substance use: current Substance use type: marijuana Do You Feel Safe in your Home?: Yes Lack of Transportation: No Lack of Food: Never True Current Housing: I Have Housing Concerned About Future Housing: No Difficulty Paying Gas/Electric Bills: No Difficulty Paying for Meds: No Currently Unemployed: No Education: High School Diploma/GED Difficulty w/ Childcare or Family Care: No Living arrangements: with family Spiritual care concerns: No Anes - Eval Final PreProcedure Day of Procedure 07/09/24 10:11 Patient weight: obese Heart: regular rate and rhythm Lungs: clear to auscultation Airway: Mallampati scale class II Neurological: alert and oriented Last oral intake: >/= 8 hours ASA classification: III Emergent: no Anesthetic plan: proceed Anesthesia type and monitoring: general ETT and standard monitoring Results Review: All pre-operative results and documents have been reviewed as part of the pre- operative evaluation. Informed Consent: The patient's anesthetic plan and its attendant risks and benefits were discussed with the patient/family/POA. Questions were solicited and answers provided to the satisfaction of the patient/family/POA.
[2024-07-09] MEDS: ceFAZolin 2 GM/D5W 50 ML 2 GM/50 ML BAG IVPB (13:22)
[2024-07-09] MEDS: BUPIVACAINE/EPINEPHRINE 0.5% 30 ML VIAL INFILTRATE (13:55)
[2024-07-09] MEDS: fentaNYL CITRATE INJ (*CRX) 100 MCG/2 ML VIAL 25 MCG IV PUSH ×2 (16:43→17:15)
--- NOTE | 2024-07-09 17:24 | P.OP_ITS ---
Procedure Note - Detailed Date of Procedure 07/09/24 Pre-op Diagnosis recurrent incisional hernia(5cm defect) Post-op Diagnosis Same Procedure Performed Robotic laparoscopic repair recurrent incisional hernia with 5 cm defect using mesh Surgeon Dominic Blank MD Tipping Machine Operator Jackie FUNES, Meeta FUNES Anesthesia General and Local Indications Patient had umbilical hernia repair in 2017. This recurred and she had another umbilical hernia repair with mesh in 2018. About 2 years ago she noticed a recurrent bulge just to the left of her umbilicus. This has gotten larger and is sometimes painful. Patient also has a history of polycystic kidney disease and polycystic liver disease. She is taken to surgery now for robotic laparoscopic repair of re recurrent incisional hernia. Findings Hernia had a 5 cm defect. It had recurred on the left lateral aspect of the mesh. Description of Procedure Patient was taken to surgery and induced into general anesthesia. The abdomen is prepped and draped. Initial incision was in the left lateral abdomen. The varies needle was introduced. The patient's liver was quite large in we carefully avoided the liver. It the liver was palpable even on the patient's left side. Insufflation was carried out. I then changed this out to a in applied Medical 5 mm optical trocar. Abdomen was fully insufflated with CO2. The area of the hernia could be seen. Robotic ports were placed in the left lateral abdomen under direct visualization. The optical trocar was changed out for an 8 mm robotic trocar under direct visualization. The robotic arms were brought into the field. The camera was docked and targeted. The instrument arms were docked and instruments positioned appropriately. The surgeon went to the robotic console. There were adhesions to the hernia defect and the old mesh. The hernia was 5 cm in greatest dimension. There were also adhesions to the old mesh. The mesh from the abdominal wall fairly easily. All the mesh was removed from the anterior abdominal wall as were some residual Ethibond suture. Loose portion of the mesh was excised. The rest was left attached to the omentum. The mesh and some suture material were removed from the abdominal cavity in the robotic sac. These were sent to pathology for gross only. The abdominal insufflation was decreased to 10 mm Hg. An O Stratafix was used and the defect was closed in a longitudinal fashion. A 15 x [address] mesh was then introduced into the abdominal cavity. It was secured to the anterior abdominal wall with the residual 0 Stratafix. I then used 2 0 V lock suture and secured the mesh to the anterior abdominal wall with the circumferential running suture. This was done with the patient pressure of 10 cm. Once the mesh was secured, I used the V lock to run the length of the mesh and further secure it to the anterior abdominal wall so that it would incorporate well. We then removed residual suture and all the needles. All looked good. We evacuated CO2 and removed the instruments. The robot was undocked. Skin wounds were closed with subcuticular 4-0 Monocryl skin suture. The wounds were dressed with Exofin surgical adhesive. The patient was awakened and taken to recovery in good condition. Sponge and needle counts were correct x2. Implants 10 x [address] mesh Estimated Blood Loss -5 Drains No Packing No Pathology Yes (Old hernia mesh for gross only) Complications None Condition Stable Disposition PACU [facility] Billing Surgery - Charge Forward: Surgery Billing (Robotic laparoscopic repair 5 cm recurrent incisional hernia with mesh)
[2024-07-09] MEDS: ARTIFICIAL TEARS OPHTH SOLN 15 ML BOTTLE 1 DROP EACH EYE (17:41)
[2024-07-09] MEDS: DICLOFENAC SODIUM 0.1% OPHTH SOLN 2.5 ML BOTTLE 1 DROP EACH EYE (17:44)
[2024-07-09] MEDS: PROPARACAINE HCL 0.5% 15 ML OPHTH SOLN 1 DROP EACH EYE (17:46)
--- NOTE | 2024-07-09 18:19 | SUR.PHASEII ---
MOM GETTING PRESCRIBED PAIN MED FROM PHARMACY.
[2024-07-09] MEDS: oxyCODONE HCL (*CRX) 5 MG TAB IR PO (18:23)
== END 2024-07-09 19:25 | disposition home or self-care (01) ==
PROVIDERS: PCP Family Medicine; Visit Provider Surgery
PROC: (CPT 49615; principal; 2024-07-09 11:00)
DX: K43.2 Incisional hernia without obstruction or gangrene (principal); K66.0 Peritoneal adhesions (postprocedural) (postinfection); G89.18 Other acute postprocedural pain; I10 Essential (primary) hypertension; E78.2 Mixed hyperlipidemia; N28.9 Disorder of kidney and ureter, unspecified; Q44.6 Cystic disease of liver; Q61.3 Polycystic kidney, unspecified; F12.90 Cannabis use, unspecified, uncomplicated; E66.9 Obesity, unspecified; Z68.34 Body mass index [BMI] 34.0-34.9, adult; Z79.891 Long term (current) use of opiate analgesic; Z98.890 Other specified postprocedural states; Z80.0 Family history of malignant neoplasm of digestive organs; Z80.8 Family history of malignant neoplasm of other organs or systems; Z82.49 Family history of ischemic heart disease and other diseases of the circulatory system
CPT/HCPCS: 49615; S2900; 88300; A9270; C1781; J0690; J1100; J1885; J2250; J2371; J2704; J3010; J7120

== ENCOUNTER 2024-07-29 09:18 | Outpatient (CLI) | payer BC, SELFPAY ==
--- NOTE | ~2024-07-29 | US_ITS ---
US soft tissue abdomen 07/29/2024 09:36 Indication: Incisional hernia without obstruction or gangrene. Procedure: High-resolution ultrasound of the abdominal wall to the left of the umbilicus Comparison: CT dated 05/02/2019 Findings: In the soft tissues of the anterior abdominal wall to the left of the umbilicus there is a complex partially cystic mass measuring 5.9 x 5.5 x 4.5 cm with heterogeneous internal soft tissue an d no internal vascularity. There is posterior acoustic enhancement. This does not appear to be contig uous with bowel. Impression: 1: Complex fluid collection anterior abdominal wall soft tissues to the left of the umbilicus measuri ng 5.9 x 5.5 x 4.5 cm. This most likely represents postoperative hematoma/seroma. Consider infection in the appropriate clinical setting. Hernias less favored, although can be excluded with CT abdomen a nd pelvis. Reviewed, dictated and finalized at location A. Impression: 1: Complex fluid collection anterior abdominal wall soft tissues to the left of the umbilicus measuring 5.9 x 5.5 x 4.5 cm. This most likely represents postop erative hematoma/seroma. Consider infection in the appropriate clinical setting . Hernias less favored, although can be excluded with CT abdomen and pelvis.
== END 2024-07-29 09:19 | disposition home or self-care (01) ==
LOC: GOSHIMG 09:18
PROVIDERS: PCP Family Medicine; Visit Provider Surgery
DX: R93.5 Abnormal findings on diagnostic imaging of other abdominal regions, including retroperitoneum (principal); K43.2 Incisional hernia without obstruction or gangrene
CPT/HCPCS: 76705